=== PATIENT | female | born 1990 | race Caucasian/White ===

== ENCOUNTER 2017-06-30 15:42 | Emergency (ER) | payer SELFPAY ==
[~2017-06-30] VITALS: Ht 165.1 cm; Wt 97.5 kg
[2017-06-30] MEDS ORDERED: SULF1TAB35 PO (16:24)
[2017-06-30] MEDS ORDERED: NAPR-915 PO (16:24)
--- NOTE | 2017-06-30 16:24 | ED Integumentary General ---
General Chief Complaint: Skin/Wound Problems Stated Complaint: STOMACH PAIN/SWELLING Nursing Triage Note: PT PRESENTS TO ED WITH AREA OF CONCERN/"INFECTED HAIR" ON LOWER ABDOMEN/GROIN. Source: patient History of Present Illness Date Seen by Provider: Jun 30, 2017 Time Seen by Provider: 16:05 Initial Comments C/O PAINFUL, REDDENED AREA TO LOWER ABDOMEN STARTED OUT A "PIMPLE" THAT SHE HAS BEEN POKING, SQUEEZING AND PICKING AT FOR A WEEK AND NOW IS WORSE FOR THE LAST 2-3 DAYS NO DRAINAGE FROM AREA NO FEVER NO NAUSEA/VOMITING NO HISTORY OF SIMILAR. [facility] Allergies and Home Medications Allergies Coded Allergies: No Known Drug Allergies (Unverified , 06/30/17) Home Medications Naproxen 500 Mg Tablet, 500 MG PO BID Prescribed by: CANELO CABRAL on 06/30/174 Sulfamethoxazole/Trimethoprim 1 Each Tablet, 2 EACH PO BID Prescribed by: CANELO CABRAL on 06/30/17 1624 Patient Home Medication List Home Medication List Reviewed: Yes Constitutional: no symptoms reported Respiratory: no symptoms reported Cardiovascular: no symptoms reported Musculoskeletal: no symptoms reported Skin: see HPI Psychiatric/Neurological: No Symptoms Reported Past Pejtuar-Ciolqu-Cwdilz Hx Patient Social History Alcohol Use: Rarely Uses Recreational Drug Use: No Smoking Status: Never a Smoker 2nd Hand Smoke Exposure: No Recent Foreign Travel: No Contact w/Someone Who Travel: No Recent Infectious Disease Expo: No Recent Hopitalizations: No Seasonal Allergies Seasonal Allergies: No Surgeries History of Surgeries: No Respiratory History of Respiratory Disorde: No Cardiovascular History of Cardiac Disorders: No Neurological History of Neurological Disord: No Genitourinary History of Genitourinary Disor: No Gastrointestinal History of Gastrointestinal Di: No Musculoskeletal History of Musculoskeletal Dis: No Endocrine History of Endocrine Disorders: No HEENT History of HEENT Disorders: No Cancer History of Cancer: No Psychosocial History of Psychiatric Problem: No Integumentary History of Skin or Integumenta: No Blood Transfusions History of Blood Disorders: No Physical Exam Vital Signs Vital Signs - First Documented 06/30/17 16:01 Temp 98.2 Pulse 80 Resp 18 B/P (MAP) 138/68 (91) Pulse Ox 99 Capillary Refill : Less Than 3 Seconds General Appearance: no apparent distress, obese Cardiovascular: regular rate, rhythm Respiratory: normal breath sounds Gastrointestinal: soft, no organomegaly, other (LOWER ABDOMEN WITH 1 CM CENTRAL SCAB WITH 8 X 23 CM AREA OF ERYTHEMA, WARMTH AND FIRM INDURATION. NO AREAS OF FLUCTUANCE, NO DRAINAGE, NO STREAKS. AREA IS ABOVE PUBIC AREA. HAS 1 CM OR SMALLER AREAS OF MILD FOLLICULITIS IN PUBIC AREA FROM PREVIOUSLY SHAVED HAIR. ) Back: normal inspection, no CVA tenderness Extremities: normal inspection, no pedal edema, normal capillary refill Neurologic/Psychiatric: finish off operator II-XII nml as tested, no motor/sensory deficits, alert, oriented x 3 Skin: normal color, warm/dry, other ( ABOVE) Progress/Results/Core Measures Results/Orders My Orders Orders - CANELO CABRAL DO Clindamycin Injection (Cleocin Injection (06/30/17 16:30) Ketorolac Injection (Toradol Injection) (06/30/17 16:30) Vital Signs/I&O Vital Sign - Last 12Hours 06/30/17 16:01 Temp 98.2 Pulse 80 Resp 18 B/P (MAP) 138/68 (91) Pulse Ox 99 Blood Pressure Mean: 91 Departure Impression Impression: Primary Impression: Cellulitis of abdominal wall Additional Impression: SUSPECTED MRSA Disposition: HOME, SELF-CARE Condition: Stable Departure-Patient Inst. Referrals: [facility] (PCP/Family) Primary Care Physician Patient Instructions: Cellulitis (Skin Infection), Adult (DC), Methicillin- Resistant Staphylococcus aureus (MRSA) Add. Discharge Instructions: MOIST HEAT TO AREA AT 20 MINUTE INTERVALS DO NOT PICK, POKE OR SQUEEZE AREA FOLLOW UP WITH [facility] TOMORROW FOR FURTHER CARE All discharge instructions reviewed with patient and/or family. Voiced understanding. Scripts Naproxen (Naproxen) 500 Mg Tablet 500 MG PO BID, #20 TAB Prov: CANELO CABRAL DO 06/30/17 Sulfamethoxazole/Trimethoprim (Bactrim Ds Tablet) 1 Each Tablet 2 EACH PO BID, #40 TAB Prov: CANELO CABRAL DO 06/30/17 Images Torso/Trunk 1 - Moderate, Cellulitis, Tenderness 2 - Mild, Cellulitis 3 - Mild, Cellulitis CANELO CABRAL DO Jun 30, 2017 16:24
[2017-06-30] MEDS ORDERED: KETOROLAC 60 MG/2 ML VIAL IM ONE (16:30)
[2017-06-30] MEDS ORDERED: CLINDAMYCIN 600 MG/4ML (CLEOCIN) VIAL IM ONE (16:30)
[2017-06-30 17:59] VITALS: BP 132/70
== END 2017-06-30 17:59 | disposition home or self-care (01) ==
LOC: ER 15:45
DX: L03.311 Cellulitis of abdominal wall (principal); N89.8 Other specified noninflammatory disorders of vagina
CPT/HCPCS: 96372; 99284